=== PATIENT | female | born 1960 | race Caucasian/White ===

== ENCOUNTER 2020-05-21 06:06 | Day surgery (SDC) | payer OTHER, SELFPAY ==
[2020-05-18 13:47] VITALS: BMI 30.8
--- NOTE | 2020-05-20 12:20 | P.CONAN_ITS ---
Documented by User: Natalia Hollingsworthney 05/20/20 12:20 HPI - Anesthesia Eval Consult details Narrative: 60yo F for Lumbar Spinal Cord Simulation Trial [facility] Past Medical History Medical History Asthma Back pain Chronic pain syndrome Postlaminectomy syndrome Surgical History Surgical History H/O bilateral breast reduction surgery Hx of microdiscectomy Social History Social History Alcohol intake: never Smoking Status: Never smoker Use of substances other than those prescribed or required for medical reasons: No Advance Directives: No Advance Directives Information Provided: No Advance Directives on File: No Meds Allergies Allergy/AdvReac Type Severity Reaction Status Date / Time No Known Allergies Allergy Verified 05/03/20 10:34 Home Medications Medication Instructions Recorded Confirmed Type albuterol sulfate 2 puff PO Q6H PRN 05/18/20 05/18/20 History atorvastatin 1 tab PO DAILY 05/18/20 05/18/20 History biotin 1 tab PO DAILY 05/18/20 05/18/20 History cholecalciferol (vitamin D3) 1 tab PO DAILY 05/18/20 05/18/20 History [Vitamin D3] lisinopril 1 tab PO DAILY 05/18/20 05/18/20 History metformin 1 tab PO BID 05/18/20 05/18/20 History methocarbamol 1 tab PO QAM PRN 05/18/20 05/18/20 History Exam Exam Date and Time: May 20, 2020 1220 Height,Weight and Vital Signs: Height 5 ft Weight 71.668 kg Assessment and Plan Assessment Anesthesia Assessment: Chart Reviewed Documented by User: Sam Vázquez MD 05/21/20 07:29 [facility] Past Medical History Medical History Asthma Back pain Chronic pain syndrome Postlaminectomy syndrome Surgical History Surgical History H/O bilateral breast reduction surgery Hx of microdiscectomy Social History Social History Alcohol intake: never Smoking Status: Never smoker Use of substances other than those prescribed or required for medical reasons: No Advance Directives: No Advance Directives Information Provided: No Advance Directives on File: No Meds Allergies Allergy/AdvReac Type Severity Reaction Status Date / Time No Known Allergies Allergy Verified 05/03/20 10:34 Home Medications Medication Instructions Recorded Confirmed Type albuterol sulfate 2 puff PO Q6H PRN 05/18/20 05/18/20 History atorvastatin 1 tab PO DAILY 05/18/20 05/18/20 History biotin 1 tab PO DAILY 05/18/20 05/18/20 History cholecalciferol (vitamin D3) 1 tab PO DAILY 05/18/20 05/18/20 History [Vitamin D3] lisinopril 1 tab PO DAILY 05/18/20 05/18/20 History metformin 1 tab PO BID 05/18/20 05/18/20 History methocarbamol 1 tab PO QAM PRN 05/18/20 05/18/20 History Exam Airway Mallampati Class: III TM Dist: >3cm Neck ROM: Full Loose/Missing/Broken Teeth: No Heart: rrr Lungs: nl Other: ao Assessment and Plan Assessment Anesthesia Assessment: Anesthesia Plan Discussed and Chart Reviewed Final Anesthetic Review NPO: Yes ASA Class: II Final Preanesthetic Review: No Changes in Pt Med Stat, Meds/Allgs Chart Reviewed, Consent Obtained/Reviewed and Anes Risks/Benef Reviewed Patient Risk: Low Procedure Risk: Low Anesthetic Plan Anesthetic Plan: MAC: Disposition: Standard PACU
[2020-05-21 06:20] VITALS: BP 148/77; PULSE 95; RESP 16; TEMP 36.8; O2SAT 96
[2020-05-21 06:48] LABS: Glucose, Whole Blood 102 mg/dL (60-115)
[2020-05-21] MEDS: Lactated Ringers 1,000 ML 100 ML IVCONT (06:56)
--- NOTE | 2020-05-21 07:01 | MHC.SHP ---
Pre-Procedural Eval Section A The patient is an INPATIENT: No The History & Physical has been completed within 30 days and I have reviewed it.: No Section B Chief Complaint: Post Laminectomy Syndrome Details of Present Illness: low back pain Relevant Family History (Specify if Yes): No Relevant Social History: None Present Medications: see Short Stay Collaborative assessment Medical History: No relevant PMH History of Previous Operations: Relevant previous surgery/procedure and date(s) Allergies: Allergies Allergy/AdvReac Type Severity Reaction Status Date / Time No Known Allergies Allergy Verified 05/03/20 10:34 Review of Systems Sugical H&P ROS: Negative: Cardiovascular, Respiratory, Neurological, Psychiatric, Hem-Onc, Allergic/Immunologic, Gastrointestinal, Genitourinary, Musculoskeletal, Integumentary, Endocrine and Eyes/Ears/Nose/Throat and Yes, Specify: Constitution (overweight) Exam Surgical H&P Exam: Normal: HEENT, Normal: Heart, Normal: Lungs, Normal: Extremities, Normal: Abdomen, Normal: Skin and Normal: Neurological Plan Diagnosis/Plan: Unchanged Patient has been examined and remains a candidate for the planned procedure
--- NOTE | 2020-05-21 07:17 | FL_ITS ---
EXAMINATION: XR FLUOROSCOPY WITH IMAGES CLINICAL INFORMATION: Small osteolytic trial for back pain. COMPARISON: None. TECHNIQUE: Fluoroscopy performed by Dr. Tavo Eli. Fluoroscopy time: 3.3 minutes DAP: 1.01 mGycm2 Images: 2 FINDINGS: Lateral and AP thoracic spine views reveals 2 electrodes positioned in posterior epidural space overlying T8-T10 vertebra. Visualized vertebral heights, alignment and disc heights are normal. FL/FL guidance in OR IMPRESSION: Fluoroscopy was provided to Dr. Eli for thoracic spinal stimulator insertion.
[2020-05-21 09:08] VITALS: BP 102/66; PULSE 80; RESP 16; TEMP 36.2; O2SAT 99
--- NOTE | 2020-05-21 09:09 | PM.OP ---
Brief Operative Note Date of Service: 05/21/20 Pre-op diagnosis: postlaminectomy syndrome Procedure: trial of Spinal cord stimulator, [employer]ics. Implants: none Surgeon: Tavo Eli MD Anesthesia: MAC Estimated blood loss (mL): 20 IV fluids (mL): 1,000 Disposition: PACU
[2020-05-21 09:23] VITALS: BP 114/66; PULSE 86; RESP 18; O2SAT 99
[2020-05-21 09:38] VITALS: BP 105/69; PULSE 79; RESP 20; O2SAT 99
[2020-05-21] MEDS: Acetaminophen 325 MG TABLET 975 MG PO (09:40)
[2020-05-21 09:53] VITALS: BP 126/77; PULSE 84; RESP 16; O2SAT 99
--- NOTE | 2020-05-21 10:56 | HO.POSTANES ---
Post Anesthesia Evaluation Post Anesthesia Evaluation Vital Signs: Vital Signs Temp Pulse Resp BP Pulse Ox 05/21/20 09:53 84 16 126/77 99 05/21/20 09:38 79 20 105/69 99 05/21/20 09:23 86 18 114/66 99 05/21/20 09:08 97.2 F 80 16 102/66 99 05/21/20 06:20 98.2 F 95 16 148/77 H 96 Anesthesia: Monitored Mental Status: Awake Pain Control: Satisfactory Nausea/Vomiting: None Hydration: Adequate Anesthesia-Related Issues: No Anes. Related Issues
--- NOTE | 2020-05-21 15:58 | W.PM.OPN ---
Operative Note Operative Note Date of Service: 05/21/20 Narrative: is very pleasant 60 years old lady who came today into the operating room for trial of spinal cord stimulator for the treatment of post laminectomy syndrome. Preoperatively patient received 2 grams of Cefasoline approximately 30 minutes_before procedure. After obtaining informed consent patient was brought to the operating room, SHE was positioned prone on operating table, [employer] monitors were applied and patient was deeply sedated. Time-out was performed delineating correct site, side, the nature of the procedure, patient's allergy, preoperative antibiotic if needed. All operating room staff was participating in OR time-out procedure. Patient's entire back was prepped with ChloraPrep twice and draped with full body laparoscopy drape. Sterilely draped C-arm was brought over operating field and square picture of T11-T12 L1 L2 vertebrae as were demonstrated on the screen. Attention FIRST was concentrated on the T12-L1 epidural interspace. The location of the projection of the right pedicle center of the L2 vertebra was found on the skin using C-arm. This location was injected with mixture of lidocaine 2% and Marcaine 0.5% 5 cc. After that 11 blade was used to make a sirisha on the skin. 10 cm 14 gauge curved introducer epidural needle was inserted through the sirisha and advanced to T12- L1 epidural interspace. The advancement of the needle was performed on anterior posterior and lateral views. Guitar wire and loss of resistance technique were used to locate epidural space. When guitar wire was spread in the epidural fashion, epidural lead was inserted through the skin and it was advanced to T8 position SLIGHTLY RIGHT to THE MIDLINE. After that location of the projection of the LEFT pedicle center of the vertebra was found on the skin using C-arm. This location was injected with mixture of lidocaine 2% and Marcaine 0.5% 5 cc. After that 11 blade was used to make a sirisha on the skin. _10 cm 14 gauge curved introducer epidural needle was inserted through the sirisha and advanced to T12- L1 epidural interspace. The advancement of the needle was performed on anterior posterior and lateral views. Guitar wire and loss of resistance technique were used to locate epidural space. When guitar wire was spread in the epidural fashion, epidural lead was inserted through the needle and advanced to the T8 epidural space slightly left to the midline. At this moment patient was awaken and the epidural leads were connected to the testing device. The patient reported stimulation corresponding to her pain. After satisfactory position of the leads were established the needles were withdrawn, the stylette wires were removed from the epidural leads. The anchoring devices were dislodged on the leads and advanced to the level of the skin. The anchoring devices were sutured with two 0-0 silk sutures to the skin of the patient. The leads were connected to testing device. Bacitracin ointment was applied to the entrance point of bilateral needles. Sterile dressing was applied to the patient's back. The testing device was also glued to the patient's back. Upon completion of the procedure the patient was taken to PACU where SHE recovered and UNEVENTFULLY, SHE WENT HOME WITHOUT IMMEDIATE COMPLICATIONS. The patient will be given prescription for small dose Percocets for postoperative pain control , she will continue to use ANTIBIOTICS:Keflex for the next 6 days while she is on the trial.
== END 2020-05-21 10:32 | disposition home or self-care (01) ==
PROVIDERS: Visit Provider Anesthesiology
PROC: (CPT 63650; principal; 2020-05-21 07:30)
DX: M96.1 Postlaminectomy syndrome, not elsewhere classified (principal); G89.4 Chronic pain syndrome; E11.9 Type 2 diabetes mellitus without complications; Z79.84 Long term (current) use of oral hypoglycemic drugs; J45.909 Unspecified asthma, uncomplicated; Z79.899 Other long term (current) drug therapy
CPT/HCPCS: 63650 ×2; 82947; J0690; J2250; J3010

== ENCOUNTER → 2020-05-27 14:25 | Outpatient (BNVA) | payer OTHER, SELFPAY | PROVIDERS: Visit Provider Anesthesiology | DX: M96.1 Postlaminectomy syndrome, not elsewhere classified (principal); G89.4 Chronic pain syndrome | CPT/HCPCS: 99212 ==

== ENCOUNTER 2020-10-01 08:12 | Day surgery (SDC) | payer OTHER, SELFPAY ==
--- NOTE | ~2020-10-01 | FL_ITS ---
EXAMINATION: XR FLUOROSCOPY WITH IMAGES CLINICAL INFORMATION: Spinal stimulating. Implant COMPARISON: Previous exam May 2020 TECHNIQUE: Fluoroscopy performed by Dr. Tavo Eli. Fluoroscopy time: 5.2 minutes DAP: 25 mGycm2 Images: 2 FINDINGS: Images demonstrate spinal stimulator projecting over the lower thoracic spinal canal. FL/FL guidance in OR IMPRESSION: Fluoroscopic guidance for spinal stimulator placement.
[2020-10-01 08:40] VITALS: BP 158/82; PULSE 90; RESP 18; TEMP 36.8; O2SAT 99; BMI 30.7
--- NOTE | 2020-10-01 08:49 | P.CONAN_ITS ---
[facility] Active Problems Active Problems: All Active Problems (Updated 09/28/20 @ 11:05 by Mona wright) Chronic pain syndrome (Acute) Postlaminectomy syndrome (Acute) Past Medical History Medical History Asthma Back pain Chronic pain syndrome Chronic pain syndrome Diabetes mellitus Elevated cholesterol HTN (hypertension) Postlaminectomy syndrome Postlaminectomy syndrome Surgical History Surgical History H/O bilateral breast reduction surgery Hx of microdiscectomy Social History Social History Alcohol intake: never Smoking Status: Never smoker Use of substances other than those prescribed or required for medical reasons: No Advance Directives: No Advance Directives Information Provided: Yes Meds Allergies Allergy/AdvReac Type Severity Reaction Status Date / Time No Known Allergies Allergy Verified 10/01/20 08:29 Active Medications: Current Medications Generic Name Dose Route Start Last Admin Trade Name Freq PRN Reason Stop Dose Admin Lactated Ringer's 1,000 mls @ 50 mls/hr 09/30/20 08:15 Lr IV .Q20H ANDREW Cefazolin Sodium/Dextrose 2 gm in 50 mls @ 100 mls/hr 10/01/20 08:23 Ancef IV 10/01/20 08:52 PREOP ONE Home Medications Medication Instructions Recorded Confirmed Last Taken Type albuterol sulfate 2 puff PO Q6H PRN 05/18/20 09/28/20 05/21/20 06:17 History atorvastatin 1 tab PO DAILY 05/18/20 09/28/20 Unknown History biotin 1 tab PO DAILY 05/18/20 09/28/20 Unknown History cholecalciferol (vitamin D3) 1 tab PO DAILY 05/18/20 09/28/20 Unknown History [Vitamin D3] lisinopril 1 tab PO DAILY 05/18/20 09/28/20 10/01/20 06:00 History metformin 1 tab PO BID 05/18/20 09/28/20 Unknown History methocarbamol 1 tab PO QAM PRN 05/18/20 09/28/20 Unknown History Exam Exam Date and Time: October 01, 2020 0849 Height,Weight and Vital Signs: Height 5 ft Weight 71.214 kg Last Vital Signs Temp 98.3 F 10/01/20 08:40 Pulse 90 10/01/20 08:40 Resp 18 10/01/20 08:40 BP 158/82 H 10/01/20 08:40 Pulse Ox 99 10/01/20 08:40 Airway Mallampati Class: II TM Dist: >3cm Neck ROM: Full
[2020-10-01 08:52] LABS: Glucose, Whole Blood 102 mg/dL (60-115)
--- NOTE | 2020-10-01 08:55 | MHC.SHP ---
Pre-Procedural Eval Section A The patient is an INPATIENT: No Changes since office visit: Yes Patient answered all questions The History & Physical has been completed within 30 days and I have reviewed it.: No Section B Chief Complaint: Postlaminectomy Syndrome Details of Present Illness: as above Relevant Family History (Specify if Yes): No Relevant Social History: None Present Medications: see Short Stay Collaborative assessment Medical History: No relevant PMH History of Previous Operations: Relevant previous surgery/procedure and date(s) Allergies: Allergies Allergy/AdvReac Type Severity Reaction Status Date / Time No Known Allergies Allergy Verified 10/01/20 08:29 Review of Systems Sugical H&P ROS: Negative: Constitution, Cardiovascular, Respiratory, Neurological, Psychiatric, Hem-Onc, Allergic/Immunologic, Gastrointestinal, Genitourinary, Musculoskeletal, Integumentary, Endocrine and Eyes/Ears/Nose/Throat Exam Surgical H&P Exam: Normal: HEENT, Normal: Heart, Normal: Lungs, Normal: Extremities, Normal: Abdomen, Normal: Skin and Normal: Neurological Plan Diagnosis/Plan: Unchanged I have reviewed the history and physical and performed a pertinent physical examination on my patient. No changes have occurred unless specified.
[2020-10-01] MEDS: Lactated Ringers 1,000 ML 100 ML IVCONT (09:01)
[2020-10-01 11:20] VITALS: BP 92/54; PULSE 73; RESP 11; TEMP 36.3; O2SAT 97
--- NOTE | 2020-10-01 11:28 | PM.OP ---
Brief Operative Note Date of Service: 10/01/20 Pre-op diagnosis: Postlaminectomy syndrome Post-op diagnosis: same Procedure: Implantation of [employer] spinal cord stimulation system Implants: In tell is battery and epidural leads #2 Surgeon: Tavo Eli MD Anesthesia: MAC Estimated blood loss (mL): 10 Pathology: none sent Condition: stable Disposition: PACU
--- NOTE | 2020-10-01 11:32 | P.OP_ITS ---
Operative Note Operative Note Date of Service: 10/01/20 Narrative: Narrative: Ms. Hoang is very pleasant 60 years old female who came today into the operating room for implantation of spinal cord stimulator for the treatment of pain related to degenerative disc disease and postlaminect nathalie syndrome. She had successful trial of spinal cord stimulation. Preoperatively patient received 2 g cefazolin _approximately 30 minutes before the procedure. After obtaining informed consent patient was brought to the operating room, he was positioned prone on operating table, [employer] monitors were applied and patient was deeply sedated. Time-out was performed delineating correct site, side, the nature of the procedure, patient's allergy, preoperative antibiotic. All operating room staff was participating in OR time-out procedure. Patient's entire back was prepped with ChloraPrep twice and draped with full body drape including Ioban film. Sterilely draped C-arm was brought over operating field and square picture of T12, L1, L2 vertebrae as were demonstrated on the screen. THE PROJECTION OF L2-L3 SPINAL PROCESSES TO THE SKIN WERE INFILTRATED WITH LIDOCAINE 2% MIXED WITH BUPIVACAINE 0.5%. Six CM LONG VERTICAL INCISION using a 10 blade scalpel WAS PERFORMED IN STRICT MIDLINE VERTICAL FASHION. THOROUGH HEMOSTASIS WAS PERFORMED using electrocautery. Thorough tissue dissections was performed until prevertebral fascia was freed from overlying tissues. Attention FIRST was concentrated on the RIGHT T12-L1 epidural interspace. The location of the projection of the right pedicle center of the L2 vertebra was found on the prevertebral fascia using C-arm. This location was injected with mixture of lidocaine 2% and Marcaine 0.5% 5 cc in approximate direction of needle advancement.. After that 10 cm 14 gauge straight introducer epidural needle was inserted through the fascia and advanced toward T12 -L1 epidural interspace. The advancement of the needle was performed on anterior posterior and lateral views. Guitar wire and loss of resistance technique were used to locate epidural space. When guitar wire was spread in the epidural fashion, epidural lead was inserted through the skin and it was advanced to T8 position POSTERIOR EPIDURAL SPACE strictly to the midline.. After that location of the projection of the LEFT pedicle center of the L2 vertebra was found -using C-arm. This location was injected with mixture of lidocaine 2% and Marcaine 0.5% 5 cc.. . 10 cm 14 gauge curved introducer epidural needle was inserted through the fascia and advanced to T12-L1 epidural interspace. The advancement of the needle was performed on anterior posterior and lateral views. Guitar wire and loss of resistance technique were used to locate epidural space. When guitar wire was spread in the epidural fashion, epidural lead was inserted through the needle and advanced to the T9 POSTERIOR EPIDURAL SPACE SLIGHTLY right to the existing line .. THE LOCATION OF BOTH LEADS WAS VERIFIED ON ANTERIOR POSTERIOR AND LATERAL VIEWS. At this moment the patient was awaken and testing was performed. The patient responded well with both locations of the epidural leads. She reported stimulation in the projection of the lumbar spine as well as stimulation in the upper portion of her right leg After satisfactory position of the leads were established the needles were withdrawn, the stylette wires were removed from the epidural leads. The anchoring devices were dislodged on the leads and advanced to the level of the skin. The anchoring devices were advanced along the epidural leads and dislodged and epidural leads at the level of prevertebral fascia. They were sutured to prevertebral fascia with 2 separate Tycron 1.0 sutures per each anchoring device. After that the wound was irrigated with copious amount of Vancomycin containing normal saline and packed with Vancomycin soaked 4 x 4. After that attention was concentrated on the right upper buttock of the patient where he wanted battery to be implanted. 6 cm long horizontal incision was performed 3 cm below the highest point of the right iliac crest.. Subcutaneous pocket was formed not deeper than 2 cm under the skin using dull dissection and electrocautery dissection. Thorough hemostasis was obtained. The wound was irrigated with copious amount of Vancomycin contained normal saline. Tunneling device was used to connect the 2 wounds and epidural leads were dislodged into the side wound. They were connected to the [employer] battery and locked with a locking screwdriver device. Impedance was checked and appeared to be satisfactory. After that the anchoring sutures Tycron were applied in the most superior medial and most superior lateral corners of the wound. After that they were connected to the anchoring holes on the body of the battery, the epidural leads were gathered behind the body of the-battery, the battery and the leads were inserted into the pocket wound and after that the anchoring 2 sutures were tied. The wounds were irrigated again with Vancomycin containing normal saline, thorough hemostasis was checked, and after that the wounds were closed using 0 Vicryl. After that the skin edges wore approximated using 2 0 Vicryl, chad were applied to the wounds at the level of the skin. Bacitracin ointment was applies to the level of the chad and sterile dressings were applied to the staple lines. Medipore Tape was applied to hold the dressing to the patient's skin. Abdominal binder to wear was provided to the patient. At this moment patient was awaken and transferred to the bed she was recovering uneventfully in PACU.
[2020-10-01 11:35] VITALS: BP 103/76; PULSE 72; RESP 16; O2SAT 98
[2020-10-01 11:50] VITALS: BP 112/69; PULSE 76; RESP 18; TEMP 36.6; O2SAT 96
[2020-10-01 12:05] VITALS: BP 125/73; PULSE 77; RESP 18; O2SAT 98
[2020-10-01] MEDS: oxyCODONE HCl Immed Release 5 MG TABLET 10 MG PO (12:07)
[2020-10-01 12:30] VITALS: BP 118/72; PULSE 78; RESP 18; O2SAT 99
== END 2020-10-01 14:00 ==
LOC: HO.SSS 08:13
PROVIDERS: Visit Provider Anesthesiology
PROC: (CPT 63685; principal; 2020-10-01 09:40)
DX: M96.1 Postlaminectomy syndrome, not elsewhere classified (principal); G89.4 Chronic pain syndrome; J45.909 Unspecified asthma, uncomplicated; I10 Essential (primary) hypertension; E11.9 Type 2 diabetes mellitus without complications; Z79.4 Long term (current) use of insulin; Z79.899 Other long term (current) drug therapy
CPT/HCPCS: 63685; 63650 ×2; 82947; C1778; C1787; C1820; J0690; J2250; J3010; J3370

== ENCOUNTER → 2020-10-07 13:09 | Outpatient (BNVA) | payer OTHER, SELFPAY | PROVIDERS: Visit Provider Anesthesiology | DX: M96.1 Postlaminectomy syndrome, not elsewhere classified (principal); G89.4 Chronic pain syndrome | CPT/HCPCS: 99212 ==

== ENCOUNTER → 2020-10-14 13:00 | Outpatient (BNVA) | payer OTHER, SELFPAY | PROVIDERS: Visit Provider Anesthesiology | DX: M96.1 Postlaminectomy syndrome, not elsewhere classified (principal); G89.4 Chronic pain syndrome; M54.41 Lumbago with sciatica, right side; E11.9 Type 2 diabetes mellitus without complications; I10 Essential (primary) hypertension; E78.00 Pure hypercholesterolemia, unspecified | CPT/HCPCS: 99212 ==

== ENCOUNTER → 2020-12-02 10:41 | Outpatient (BNVA) | payer OTHER, SELFPAY | PROVIDERS: Visit Provider Anesthesiology ==

== ENCOUNTER 2021-09-14 10:24 | Outpatient (REF) | payer OTHER, SELFPAY ==
--- NOTE | ~2021-09-14 | XR_ITS ---
EXAMINATION: XR THORACOLUMBAR SPINE CLINICAL INFORMATION: Postlaminectomy syndrome COMPARISON: None TECHNIQUE: 3 views of the thoracic spine FINDINGS: No acute visible fracture or dislocation. Mild multilevel degenerative changes disc space narrowing, osteophyte formation, and facet arthropathy. Vertebral body heights and disc spaces are otherwise maintained. Posterior elements are intact. Paraspinal soft tissues are unremarkable. Partially visualized leads of a spinal stimulator with tips terminating in the mid to upper thoracic spine in the midline. Visualized portions of the chest are unremarkable. XR/XR thoracic spine 2V IMPRESSION: 1. No acute visible fracture or dislocation. 2. Mild multilevel degenerative changes.
== END 2021-09-14 10:25 | disposition home or self-care (01) ==
LOC: HO.XRAY 10:24
PROVIDERS: PCP Internal Medicine; Visit Provider Anesthesiology
DX: M96.1 Postlaminectomy syndrome, not elsewhere classified (principal); G89.4 Chronic pain syndrome; Z96.89 Presence of other specified functional implants
CPT/HCPCS: 72070; 99212

== ENCOUNTER 2024-10-22 13:19 | Outpatient (AMB) | payer OTHER, SELFPAY ==
--- NOTE | 2024-10-22 13:33 | MHC.OFFVIS ---
Vital Signs 10/22/24 13:34 Height 5 ft Weight 141 lb BMI 27.5 BP 147/78 H Blood Pressure Location Lt brachial Position Sitting Respiration 16 Pulse 90 Pulse Source Pulse Oximeter Pulse Oximetry (%) 98 Oxygen Delivery Method Room Air Intake Visit Reasons: Chronic right side low back pain Allergies No Known Allergies Allergy (Verified 09/14/21 10:36) Medication List - Last Reconciled 10/22/24 by Yanni Fernández LPN albuterol sulfate 90 mcg/actuation 2 puffs PO Q6H PRN atorvastatin 1 tab PO DAILY cholecalciferol (vitamin D3) (Vitamin D3) 1 tab PO DAILY glipizide 5 mg PO DAILY hydrochlorothiazide 12.5 mg PO DAILY lisinopril 30 mg PO DAILY metformin 1 tab PO BID HPI Comments Details: Barbara is back in my office with the same problem she presented 3 years ago. She reports that spinal cord stimulator does not help her pain. She reports that she charges the device regularly however she does not feel stimulation in the lower extremity. I decided to invite [employer] outbound call center representative to the office read her stimulator and help her to adjust the stimulation the way she feels it. I also will send her for thoracic spine x-ray again to demonstrate normal position of the epidural leads. ? PRIOR: ? H/o pain in the projection of the lumbar spine mostly located in his right side of her lumbar spine as well as lateral hip. radiates down the lateral surface of the thigh all the way to the level of the knee without crossing over the anterior surface of the knee and she also reports lateral surface of the foot expressing pins and needles. ? She was a subject of treatment in doctor [facility] office.? She was referred to Dr. Rod in 2019 . In August of 2018 Dr. Rod performed micro laminectomy and diskectomy partial on the right. She reports that her pain did not improve. After that procedure she was sent to MRI of lumbar spine and lumbar spine examination was as follows, FOR[facility], [facility] Medical History (Updated 09/14/21 @ 10:45 by Tavo Eli MD) Spinal cord stimulator status Elevated cholesterol HTN (hypertension) Diabetes mellitus Chronic pain syndrome Postlaminectomy syndrome Asthma Back pain Postlaminectomy syndrome Chronic pain syndrome Surgical History H/O bilateral breast reduction surgery Hx of microdiscectomy Social History Alcohol intake: never Comment: Tylenol 975 mg PO given at 0940 Review of Systems Const All systems reviewed & are unremarkable except as noted in HPI and below Physical Exam Vital Signs: Last Vital Signs Pulse 90 10/22/24 13:34 Resp 16 10/22/24 13:34 BP 147/78 H 10/22/24 13:34 Pulse Ox 98 10/22/24 13:34 Oxygen Delivery Method Room Air 10/22/24 13:34 BMI result Body Mass Index 27.5 Eyes General: appearance normal, both eyes and all related structures Pupils: Equal, round and reactive pupils present EOM: EOMs intact bilaterally Neck Neck: Yes full ROM Chest Chest palpation & inspection: normal inspection of the chest Resp Effort & Inspection: normal respiratory effort, able to speak in complete sentences, normal respiratory pattern, no audible wheezes and no cough Cardio Jugular venous distension: no JVD GI Inspection: Yes normal to inspection Neuro Cranial nerves: Yes Equal, round and reactive pupils present Gait exam (Neuro): Normal gait present Motor exam (neuro): 5/5 motor strength present throughout Extrem General: No pedal edema Psych Speech and movement: Normal speech and movement present Assessment & Plan Assessment & Plan (1) Postlaminectomy syndrome: Code(s): M96.1 - Postlaminectomy syndrome, not elsewhere classified Category: Medical (2) Spinal cord stimulator status: Code(s): Z96.89 - Presence of other specified functional implants Category: Medical (3) Chronic pain syndrome: Code(s): G89.4 - Chronic pain syndrome Category: Medical Plan She will be sent for evaluation of the position of the leads of the spinal cord stimulator. She will contact [employer] outbound call center representative to help her to adjust stimulation to help her pain better. The appointment with [employer] spinal cord stimulator outbound call center representative will be scheduled in the office on the day I am working in my office. Orders: Orders XR thoracic spine 3V Today G89.4 - Chronic pain syndrome, M96.1 - Postlaminectomy syndrome, not elsewhere classified, Z96.89 - Presence of other specified functional implants Coding Level of Care Code Est Pt Level 3 (45846) Diagnoses Postlaminectomy syndrome M96.1 Spinal cord stimulator status Z96.89 Chronic pain syndrome G89.4
[2024-10-22 13:34] VITALS: BP 147/78; PULSE 90; RESP 16; O2SAT 98; BMI 27.5
== END 2024-10-22 13:55 | disposition home or self-care (01) ==
LOC: HO.PMC 13:19
PROVIDERS: PCP Internal Medicine; Referring Provider Internal Medicine Endocrinology, Diabetes & Metabolism; Visit Provider Anesthesiology
DX: G89.4 Chronic pain syndrome (principal); M96.1 Postlaminectomy syndrome, not elsewhere classified; Z96.82 Presence of neurostimulator
CPT/HCPCS: 99213

== ENCOUNTER 2024-10-22 13:19 | Outpatient (REF) | payer OTHER, SELFPAY ==
--- NOTE | ~2024-10-22 | XR_ITS ---
EXAMINATION: XR THORACIC SPINE CLINICAL INFORMATION: M96.1 - Postlaminectomy syndrome, not elsewhere classified COMPARISON: 09/14/2021. TECHNIQUE: 3 views of the thoracic spine were obtained. FINDINGS: Spinal stimulator leads in the dorsal epidural midline present, spanning the superior one third of T8 to the inferior one third of T10. There is a trace levoconvex thoracolumbar scoliosis, apex at T11. There is a normal kyphosis. There is no fracture, compression deformity, or suspicious bone lesion. Mild to moderate degenerative disc changes are present in the mid to upper thoracic region. Disc spaces in the lower thoracic region and upper lumbar region appear preserved. Normal facet alignment. Imaged lungs, mediastinal contents, and soft tissues appear normal. XR/XR thoracic spine 3V IMPRESSION: 1. Spinal stimulator leads as detailed. 2. No acute bony abnormalities of the thoracic spine, or compression deformities. 3. Mild to moderate degenerative disc disease in the mid to upper thoracic spine. Electronically signed by: Minor Mccarty MD 10/23/2024 08:45 AM EDT
--- OUTSIDE RECORDS SUMMARY | 2024-10-22 14:05 | XMS_ITS | Clinical Summary ---
Author Organization [address] [facility] Address 175 [place] [address] Phone Care Team Providers Care Dining Server Name Role Phone Aracelis Alvarez MD Primary Care Provider [phone] Allergies No known active allergies Medications blood sugar diagnostic (FreeStyle Lite Strips) test strip TEST SUGAR THREE TIMES DAILY 3 Active cholecalciferol (VITAMIN D-3) 50 mcg (2,000 unit) tablet Take 1 tablet (2,000 Units total) by mouth 1 (one) time each day. 3 Active senna (SENOKOT) 8.6 mg tablet Take 1 Tablet by mouth 2 times daily. 4 Active loratadine (CLARITIN) 10 mg tablet Take 1 tablet (10 mg total) by mouth 1 (one) time each day. 3 Active flash glucose scanning reader (FreeStyle Diogenes 14 Day [place]) [facility] [place] Check fasting sugar once a day 1 Active flash glucose sensor (FREESTYLE DIOGENES 14 DAY SENSOR MISC) Check fasting blood glucose once a day 1 Active valACYclovir (VALTREX) 500 mg tablet Take 1 Tab by mouth daily. 9 Active ipratropium (ATROVENT) 42 mcg (0.06 %) nasal spray U 2 SPRAYS IEN 2 TO 3 XD 9 Active FREESTYLE LANCETS [facility] USE DIRECTED. 5 Active albuterol HFA (PROAIR HFA ; PROVENTIL HFA ; VENTOLIN HFA) 90 mcg/actuation inhalerIndication s:Mild intermittent asthma without complication Inhale 2 puffs by mouth every 4 (four) hours if needed for wheezing. 6.7 g 1 4 Active atorvastatin (LIPITOR) 10 mg tablet Take 1 tablet (10 mg total) by mouth 1 (one) time each day. 90 tablet 3 4 Active metFORMIN (GLUCOPHAGE) 500 mg tablet Take 1 tablet (500 mg total) by mouth 2 (two) times a day with meals. 90 tablet 3 4 Active meloxicam (MOBIC) 7.5 mg tablet Take 1 tablet (7.5 mg total) by mouth 1 (one) time each day. 90 tablet 3 4 Active multivitamin tablet Take 1 tablet by mouth 1 (one) time each day. 30 each 11 4 04/29/20 25 Active Calcium 600-D3 Plus, mag-zinc, 600 mg calcium- 20 mcg-50 mg tablet TAKE 1 TABLET BY MOUTH TWICE A DAY 30 tablet 2 4 Active cholecalciferol (Vitamin D3) 50 mcg (2,000 unit) tablet Take 1 tablet (2,000 Units total) by mouth 1 (one) time each day. 90 tablet 2 4 Active fluticasone propionate (FLONASE) 50 mcg/actuation nasal spray Administer 2 sprays into each nostril 1 (one) time each day. Shake gently. Before first use, prime pump. After use, clean tip and replace cap. 16 g 3 5 Active lisinopriL (PRINIVIL,ZESTRIL ) 30 mg tablet Take 1 tablet (30 mg total) by mouth 1 (one) time each day. 90 tablet 3 5 Active hydroCHLOROthiazi de 12.5 mg tablet Take 1 tablet (12.5 mg total) by mouth 1 (one) time each day. 30 each 5 5 02/12/20 25 Active diclofenac (VOLTAREN) 1 % topical gel Apply 2 g topically 2 (two) times a day. 60 g 3 5 Active glipiZIDE (Glucotrol XL) 2.5 mg 24 hr tablet Take 1 tablet (2.5 mg total) by mouth 1 (one) time each day. Do not crush, chew, or split. 90 each 2 5 Active omeprazole (PriLOSEC) [address] capsule Take 1 capsule (20 mg total) by mouth 1 (one) time each day. Do not crush or chew. 90 capsule 3 5 Active Active Problems Problem Noted Date Diagnosed Date Osteoarthritis of spine 03/18/2024 HTN (hypertension) 03/18/2024 Diabetes mellitus type 2, un complicated ([facility] V24, [facility] V28) 03/18/2024 Pseudoangiomatous stromal hyperplasia of breast 03/18/2024 Overview (03/18/2024): [facility] Pap smear of cervix shows low risk HPV present 0 01/25/2022 Overview (03/18/2024): 2021 Pap : neg cytology, + HPV ( neg 16/18/45) Per [facility] - repeat one year Mild intermittent asthma without complication Intertrigo 04/01/2018 Abdominal pannus 04/01/2018 Constipation 03/12/2018 Back pain, chronic 01/08/2018 Allergic rhinitis 01/08/2018 Hyperlipidemia 08/02/2017 Vitamin D insufficiency 03/02/2017 Osteopenia 08/03/2016 Encounters Date Type Department Care Team Description 09/10/2024 Telephone Endocrinology [address] [phone] Vilma Pimentel MD Letter for School/Work 09/04/2024 4:30 PM EDT Consult Endocrinology - [address] [phone] Vilma Pimentel MD Type 2 diabetes mellitus without complication, without long-term current use of insulin ([facility] V24, [facility] V28) 09/01/2024 1:30 PM EDT Office Visit Obstetrics & Gynecology - [address] [phone] Leslee Chacon CNM Encounter for well woman exam with routine gynecological exam (Primary Dx); Screening breast examination 08/25/2024 3:00 PM EDT Office Visit Internal Medicine - [place] [address] [facility] [address] [place] [phone] Aracelis Alvarez MD Chronic right-sided low back pain with right-sided sciatica (Primary Dx); Primary hypertension; Mild intermittent asthma without complication 08/15/2024 9:30 AM EST Office Visit Internal [facility] [address] [facility] [address] [place] [address] Aracelis Alvarez MD Primary hypertension (Primary Dx); Type 2 diabetes mellitus without complication, without long-term current use of insulin (CMS/HCC V24, CMS/HCC V28); Low TSH level 08/05/2024 Telephone Internal Medicine [address] [phone] Aracelis Alvarez MD Forms: RMV eval form from Last 3 Months Immunizations Name Administration Dates Next Due Hepatitis B (Klsnnbb-A-Dnnnv , Recombivax HB-Adult) 19yo and older 11/21/2012,10/21/2012 Influenza Quadravalent, MDCK , 0.5ml, preservative free (Flucelvax) 6mo and older 03/05/2023,04/10/2022,02/13/2019 Influenza Quadrivalent, 0.5m l, preservative free (Fluarix; FluLaval; Fluzone) ages 6mo and older (Afluria) 3yo and older 03/30/2021,02/24/2020,02/18/2018 Influenza trivalent, 0.5mL, preservative free (Fluarix; FluLaval; Fluzone) ages 6mo and older (Afluria) 3 years and older 03/11/2024,03/06/2016 Influenza trivalent, with pr eservative (Fluzone; Afluria) 6mo and older 03/19/2013 MileWise SARS-CoV-2 COVID-19, mRNA, LNP-S, preservative free 06/08/2021,08/12/2020,07/22/2020 RSV, bivalent, protein subun it RSVpreF, 0.5mL, Preservative Free (Arexvy) 60yo and older 04/02/2024 Tdap Tetanus diptheria acell ular pertussis (Boostrix; Adacel) 7yo and older 04/05/2016 Zoster recombinant (Shingrix ) 19yo and older 07/15/2018 Surgical History Surgery Date Site/Laterality Comments BREAST REDUCTION PROCEDURE: OR BREAST REDUCTION SECTION PROCEDURE: HISTORICAL DELIVERY OTHER SURGICAL HISTORY PROCEDURE: HISTORY OTHER; COMMENT: laryngeal surgery OTHER SURGICAL HISTORY PROCEDURE: OR LAMOT PRTL FFD EXC DISC REEXPL 1 NTRSPC LUMBAR; COMMENT: L5 OTHER SURGICAL HISTORY 12/2018 Left PROCEDURE: BREAST,NEEDLE ASPIRATION CYTOLOGY EXAM; COMMENT: FNA- results negative for malignancy, OTHER SURGICAL HISTORY Left PROCEDURE: HISTORY OTHER; COMMENT: left srist in 2022 s/p fall STEREOTACTIC CORE BIOPSY Medical History Medical History Date Comments Abdominal pannus 04/01/2018 DX:Abdominal pa nnus Allergic rhinitis 01/08/2018 DX:Allergic rh initis Back pain, chronic 01/08/2018 DX:Back pain, chronic Constipation 03/12/2018 DX:Constipation Diabetes mellitus type 2, un complicated (CMS/HCC V24, CMS/HCC V28) DX:Diabetes mellitus type 2 , uncomplicated ([facility]) HTN (hypertension) DX:HTN (hyper tension) Hyperlipidemia 08/02/2017 DX:Hyperlipidemi a Intertrigo 04/01/2018 DX:Intertrigo Osteoarthritis of spine DX:Osteo arthritis of spine Osteopenia 08/03/2016 DX:Osteopenia Pseudoangiomatous stromal hy perplasia of breast DX:Pseudoangiomatous stromal hyperplasia of breast; COMMENT: PASH Vitamin D insufficiency 03/02/2017 DX:Vitam in D insufficiency 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 DX:Seropositive for herpes s implex 2 infection; COMMENT: HSV 1 and 2 Family History Medical History Relation Name Comments No Known Problems Brother 1 Alcohol abuse Brother 2 Prostate cancer Father Diabetes Mother Other: pre- diabetes Sister 1 No Known Problems Sister 2 Hypertension Sister 3 No Known Problems Sister 4 Relation Name Status Comments Brother 1 Alive Brother 2 Alive Father Mother Alive Sister 1 Alive Sister 2 Alive Sister 3 Alive Sister 4 Alive Social History Tobacco Use Types Packs/Day Years Used Date Smoking Tobacco: Never Smokeless Tobacco: Never Tobacco Cessation:Counseling Given: Not Answered Alcohol Use Standard Drinks/Week Comments No 0 (1 standard drink = 0.6 oz pur e alcohol) Comments No Sex and Gender Information Value Date Recorded Sex Assigned at Not on file Legal Sex Female 4:57 PM EST Gender Identity Not on file Sexual Orientation Not on file Obstetrics History Para Term AB IAB SAB Ectopic Multiple Livin g Live Births 2 2 2 0 0 0 0 0 0 2 2 Date Outcome GA Total Labor Labor/2nd/3rd Weight Sex Type Anes PTL Danae A1 A5 Name Clin 1977 Term M Vag-S pont Living 1987 Term F CS-Un spec Living Last Filed Vital Signs Vital Sign Reading Time Taken Comments Blood Pressure 132/78 09/04/2024 4:19 PM EDT Pulse 87 09/04/2024 4:19 PM EDT Temperature 36.1 ??C (97 ??F) 09/04/2024 4:19 PM EDT Respiratory Rate 14 09/01/2024 1:30 PM EDT Oxygen Saturation 98% 09/04/2024 4:19 PM EDT Inhaled Oxygen Concentration - - Weight 64.9 kg (143 lb) 09/04/2024 4:19 PM EDT Height 152.4 cm (5') 09/04/2024 4:19 PM EDT Body Mass Index 27.93 09/04/2024 4:19 PM EDT Plan of Treatment Upcoming Encounters Date Type Department Care Team (Late st Contact Info) Description 10/29/2024 1:00 PM EDT Office Visit Internal Medicine - [place] [address] [facility] [address] [place] [address] Aracelis Alvarez MD [address] [facility] [place] [address] [place] [address] Health Maintenance Due Date Last Done Comments Diabetes: Annual Foot Exam 1970 Pneumococcal Vaccine: 50+ Years (1 of 2 - PCV) 1979 Pneumococcal Vaccine: Pediatrics (0 to 5 Years) and At-Risk Patients (6 to 64 Years) (1 of 2 - PCV) 1979 Hepatitis B Vaccines (3 of 3 - 19+ 3-dose series) 04/23/2013 11/21/2012, 10/21/2012 Zoster Vaccines (2 of 2) 09/09/2018 07/15/2018 Depression Screening 05/20/2022 HIV Screening 05/20/2022 Hepatitis C Screening 05/20/2022 Social Influencers of Health Screening 05/20/2022 Diabetes: Annual Urine Albumin-Creatinine Ratio (uACR) 05/21/2022 12/24/2020 Diabetes: Annual Retina Eye Exam 08/19/2024 08/20/2023 Diabetes: Blood Sugar Control Test (HGBA1C) 02/15/2025 08/15/2024, 05/01/2024, 11/23/2023, Additional history exists Diabetes: Annual GFR (Glomerular Filtration Rate) 05/01/2025 05/01/2024, 11/23/2023, 11/23/2023 Hypertension/CHF/CAD Annual BMP Blood Test 05/01/2025 05/01/2024, 11/23/2023, 11/23/2023 DTaP,Tdap,and Td Vaccines (2 - Td or Tdap) 04/05/2026 04/05/2016 Breast Cancer Screening 06/03/2026 06/03/20, 05/15/2024, 05/15/2024, Additional history exists Cervical Cancer Screening: HPV 02/02/2028 02/01/2023 Colorectal Cancer Screening: Colonoscopy 05/22/2028 05/22/2018 Cholesterol Screening (Lipid Panel) 05/01/2029 05/01/2024, 03/09/2023 COVID-19 Vaccine Completed 03/11/2024, , 08/12/2020, Additional history exists Influenza Vaccine Completed 03/11/2024, , 04/10/2022, Additional history exists RSV Immunization Adult Patients Completed 04/02/2024 HIB Vaccines Aged Out No longer eligi ble based on patient's age to complete this topic HPV Vaccines Aged Out No longer eligi ble based on patient's age to complete this topic Hepatitis A Vaccines Aged Out No long er eligible based on patient's age to complete this topic IPV Vaccines Aged Out No longer eligi ble based on patient's age to complete this topic MMR Vaccines Aged Out No longer eligi ble based on patient's age to complete this topic Meningococcal ACWY Vaccine Aged Out N o longer eligible based on patient's age to complete this topic Meningococcal B Vaccine Aged Out No l onger eligible based on patient's age to complete this topic RSV Immunization Patients Under 20 months Aged Out No longer eligible based on patient's age to complete this topic Varicella Vaccines Aged Out No longer eligible based on patient's age to complete this topic Procedures Procedure Name Priority Date/Time Associated Diagnosis Comments HEMOGLOBIN A1C Routine 08/15/2024 10:54 AM EST Type 2 diabetes mellitus without complication, without long-term current use of insulin ([facility] V24, [facility] V28) Low TSH level THYROID STIMULATING HORMONE WITH REFLEX TO FREE T4 AND FREE T3 Routine 08/15/2024 10:54 AM EST Type 2 diabetes mellitus without complication, without long-term current use of insulin ([facility] V24, [facility] V28) Low TSH level MG MAMMO DIAGNOSTIC ADDL VIEWS LEFT Routine 06/03/2024 9:23 AM EST Breast asymmetry COMPREHENSIVE METABOLIC PANEL Routine 05/01/2024 9:47 AM EST Mild intermittent asthma without complication Adult general medical examination Vitamin D deficiency Primary hypertension Type 2 diabetes mellitus without complication, without long-term current use of insulin ([facility] V24, [facility] V28) LIPID PANEL WITH REFLEX TO DIRECT LDL Routine 05/01/2024 9:47 AM EST Mild intermittent asthma without complication Adult general medical examination Vitamin D deficiency Primary hypertension Type 2 diabetes mellitus without complication, without long-term current use of insulin ([facility] V24, [facility] V28) DIABETES EYE EXAM Routine 08/20/2023 HPV Routine 02/01/2023 URINE ALBUMIN CREATININE RATIO Routine 12/24/2020 COLONOSCOPY Routine 05/22/2018 from Last 3 Months or Most Recently Relevant to Health Maintenance Results * Thyroid stimulating hormone with reflex to free t4 and free t3 (08/15/2024 10:54 AM EST) TSH 0.65 0.40 - 4.00 mcIU/mL LAB CHEMISTRY METHOD 08/15/2024 2:14 PM EST [facility] Blood Venous blood specimen / Unknown Venipuncture / Unknown 08/15/2024 10:54 AM EST 08/15/2024 10:54 AM EST Aracelis Alvarez MD LAB BLOOD ORDERABLES Final Res ult Performing Organization Address [facility]/ZIP Co de Phone Number [facility] [address] [place] [address], [place] [phone] * (ABNORMAL) Hemoglobin A1c (08/15/2024 10:54 AM EST) Hemoglobin A1C 7.3(H) <6.5 % LAB CHEMISTRY METHOD 08/15/2024 10:06 PM EST [facility] Mean Bld Glu Estim. 163 mg/dL LAB CHEMISTRY METHOD 08/15/2024 10:06 PM EST [facility] Blood Venous blood specimen / Unknown Venipuncture / Unknown 08/15/2024 10:54 AM EST 08/15/2024 10:54 AM EST Aracelis Alvarez MD LAB BLOOD ORDERABLES Final Res ult Performing Organization Address [facility] de Phone Number [facility] [address] [place] [address], * MG Mammo Diagnostic Addl Views Left (06/03/2024 9:23 AM EST) Anatomical Region Laterality Modality Breast Left Mammography 06/03/2024 9:16 AM EST Impressions 06/03/2024 9:22 AM EST Benign. BI-RADS CATEGORY: 1 - NEGATIVE RECOMMENDATION: Screening bilateral mammogram is recommended in 1 year. Mammo Location: [facility], [address] [place] [id number] -------- FINAL REPORT -------- Dictated By: Benedict Seals Dictated Date: 06/03/2024 09:16 ET Assigned Physician: Benedict Seals Reviewed and Electronically Signed By: Benedict Seals Signed Date: 06/03/2024 09:22 ET Workstation ID: [id number] Transcribed By: Self Edit Transcribed Date: 06/03/2024 09:18 ET Narrative 06/03/2024 9:22 AM EST CLINICAL: The patient is a 64 years Female. ??Screening mammography performed 05/15/2024 demonstrated a 4.4 mm diameter asymmetry superiorly in the left breast middle to posterior depth, 5 cm from the nipple, seen on MLO projection only. ??The patient now presents for supplementary imaging. COMPARISON: Most recently 05/25/2024 and most remotely 06/06/2016. ?? TECHNIQUE: Digital mammography of the left breast in spot compression MLO tomosynthesis, full field 2 lateral tomosynthesis, and exaggerated CC tomosynthesis projections is performed in the [employer] 2000-D unit. ??Computer aided detection utilizing the iCAD system was utilized. FINDINGS: The study demonstrates nearly complete effacement of the asymmetry of concern with compression and with change in position. ??No concerning mass or asymmetry is now seen. ??This indicates that the finding on screening mammography represented superimposition artifact. TISSUE DENSITY: There are scattered areas of fibroglandular density. (BI-RADS category B) Procedure Note Benedict Seals MD - 06/03/2024 CLINICAL: The patient is a 64 years Female. Screening mammographyperformed 05/15/2024 demonstrated a 4.4 mm diameter asymmetry superiorly inthe left breast middle to posterior depth, 5 cm from the nipple, seen onMLO projection only. The patient now presents for supplementaryimaging. COMPARISON: Most recently 05/25/2024 and most remotely 06/06/2016. TECHNIQUE: Digital mammography of the left breast in spot compression MLOtomosynthesis, full field 2 lateral tomosynthesis, and exaggerated CCtomosynthesis projections is performed in the [employer] 2000-D unit.Computer aided detection utilizing the iCAD system was utilized. FINDINGS: The study demonstrates nearly complete effacement of theasymmetry of concern with compression and with change in position. Noconcerning mass or asymmetry is now seen. This indicates that the findingon screening mammography represented superimposition artifact. TISSUE DENSITY: There are scattered areas of fibroglandular density.(BI-RADS category B) IMPRESSION: Benign. BI-RADS CATEGORY: 1 - NEGATIVE RECOMMENDATION: Screening bilateral mammogram is recommended in 1 year. Mammo Location: [facility], [facility], [address] [place] [id number] -------- FINAL REPORT -------- Dictated By: Benedict Seals Dictated Date: 06/03/2024 09:16 ET Assigned Physician: Benedict Seals Reviewed and Electronically Signed By: Benedict Seals Signed Date: 06/03/2024 09:22 ET Workstation ID: [id number] Transcribed By: Self Edit Transcribed Date: 06/03/2024 09:18 ET Aracelis Alvarez MD IMG BI PROCEDURES Final Result * Lipid panel with reflex to direct LDL (05/01/2024 9:47 AM EST) Cholesterol 159 0 - 200 mg/dL LAB CHEMISTRY METHOD 05/01/2024 3:53 PM [facility] Triglycerides 96 0 - 150 mg/dL LAB CHEMISTRY METHOD 05/01/2024 3:53 PM [facility] HDL 55 >=40 mg/dL LAB CHEMISTRY METHOD 05/01/2024 3:53 PM [facility] LDL Calculated 85 0 - 100 mg/dL LAB CHEMISTRY METHOD 05/01/2024 3:53 PM [facility] VLDL Cholesterol Tr 19.2 mg/dL LAB CHEMISTRY METHOD 05/01/2024 3:53 PM [facility] Non HDL Chol. (LDL+VLDL) 104 <145 mg/dL LAB CHEMISTRY METHOD 05/01/2024 3:53 PM [facility] Chol/HDL Ratio 2.9 0.0 - 4.4 LAB CHEMISTRY METHOD 05/01/2024 3:53 PM [facility] Blood Venous blood specimen / Unknown Venipuncture / Unknown 05/01/2024 9:47 AM EST 05/01/2024 9:47 AM EST us Aracelis Alvarez MD LAB BLOOD ORDERABLES Final Res ult [facility] [address] [place] [address], * (ABNORMAL) Comprehensive metabolic panel (05/01/2024 9:47 AM EST) Sodium 141 133 - 145 mmol/L LAB CHEMISTRY METHOD 05/01/2024 3:53 PM [facility] Potassium 4.2 3.5 - 5.5 mmol/L LAB CHEMISTRY METHOD 05/01/2024 3:53 PM [facility] Chloride 107 96 - 110 mmol/L LAB CHEMISTRY METHOD 05/01/2024 3:53 PM [facility] CO2 25 21 - 32 mmol/L LAB CHEMISTRY METHOD 05/01/2024 3:53 PM [facility] Anion Gap 9 3 - 11 LAB CHEMISTRY METHOD 05/01/2024 3:53 PM [facility] Glucose 83 70 - 100 mg/dL LAB CHEMISTRY METHOD 05/01/2024 3:53 PM [facility] BUN 14 5 - 25 mg/dL LAB CHEMISTRY METHOD 05/01/2024 3:53 PM [facility] Creatinine 0.88 0.50 - 1.10 mg/dL LAB CHEMISTRY METHOD 05/01/2024 3:53 PM [facility] eGFR 73 >=60 mL/min/1. 73m2 LAB CHEMISTRY METHOD 05/01/2024 3:53 PM [facility] Comment:Calculation based on the??Chronic Kidney Disease Epidemiology Collaboration (CKD-EPI) equation refit??without adjustment for race. BUN/Creatinine Ratio 15.9 LAB CHEMISTRY METHOD 05/01/2024 3:53 PM [facility] Calcium 9.9 8.5 - 10.5 mg/dL LAB CHEMISTRY METHOD 05/01/2024 3:53 PM [facility] AST (SGOT) 19 10 - 42 unit/L LAB CHEMISTRY METHOD 05/01/2024 3:53 PM [facility] ALT (SGPT) 25 10 - 60 unit/L LAB CHEMISTRY METHOD 05/01/2024 3:53 PM [facility] Alkaline Phosphatase 84 42 - 121 unit/L LAB CHEMISTRY METHOD 05/01/2024 3:53 PM [facility] Total Protein 8.1(H) 6.0 - 8.0 g/dL LAB CHEMISTRY METHOD 05/01/2024 3:53 PM [facility] Albumin 4.0 3.2 - 5.0 g/dL LAB CHEMISTRY METHOD 05/01/2024 3:53 PM [facility] Total Bilirubin 0.4 0.0 - 1.4 mg/dL LAB CHEMISTRY METHOD 05/01/2024 3:53 PM [facility] Blood Venous blood specimen / Unknown Venipuncture / Unknown 05/01/2024 9:47 AM EST 05/01/2024 9:47 AM EST us Aracelis Alvarez MD LAB BLOOD ORDERABLES Final Res ult [facility] [address] [place] [address], * Diabetes Eye Exam (08/20/2023) Pathologist [facility] Diabetes: Annual Retina Eye Exam Abstracted Historical Provider HEALTH MAINTENANCE Final Result * Cervical Cancer Screening: HPV (02/01/2023) Pathologist [facility] Cervical Cancer Screening: HPV Negative, Abstracted Historical Provider HEALTH MAINTENANCE Final Result * Urine Albumin Creatinine Ratio (12/24/2020) Urine Albumin Creatinine Ratio Abstracted Historical Provider HEALTH MAINTENANCE Final Result * Colonoscopy (05/22/2018) Colonoscopy Normal, Abstracted Anatomical Region Laterality Modality Other us Historical Provider HEALTH MAINTENANCE Final Result from Last 3 Months or Most Recently Relevant to Health Maintenance Insurance [facility] [employer] Care Teams Dining Server Relationship Specialty Start Date End Date Aracelis Alvarez MD [address] [place] [phone] PCP - General Internal Medicine 02/18/19
== END 2024-10-22 13:20 | disposition home or self-care (01) ==
LOC: HO.XRAY 13:19
PROVIDERS: PCP Internal Medicine; Referring Provider Internal Medicine Endocrinology, Diabetes & Metabolism; Visit Provider Anesthesiology
DX: G89.4 Chronic pain syndrome (principal); Z96.89 Presence of other specified functional implants; M96.1 Postlaminectomy syndrome, not elsewhere classified
CPT/HCPCS: 72072; 99212

== ENCOUNTER → 2024-10-22 14:06 | Outpatient (BNV) | payer OTHER, SELFPAY | PROVIDERS: PCP Internal Medicine; Referring Provider Internal Medicine Endocrinology, Diabetes & Metabolism; Visit Provider Radiology Diagnostic Radiology | DX: M51.34 Other intervertebral disc degeneration, thoracic region (principal) | CPT/HCPCS: 72072 ==

== ENCOUNTER → 2024-11-12 14:04 | Outpatient (BNVA) | payer OTHER, SELFPAY | PROVIDERS: PCP Internal Medicine; Visit Provider Anesthesiology ==